=== PATIENT | female | born 1985 | race Caucasian/White ===

== ENCOUNTER 2017-08-31 05:57 | Emergency (ER) | payer OTHER ==
[~2017-08-31] VITALS: Ht 165.1 cm; Wt 68.7 kg
[~2017-08-31 05:57] MED LIST: CEFD300C37 PO; FERR325T18 PO; HYDR-3237 PO
[2017-08-31] MEDS ORDERED: ONDANSETRON ODT 4 MG ONE ×2 (06:30→08:56)
[2017-08-31] MEDS ORDERED: SODIUM CHLORIDE FLUSH 10ML SYR IVF ONE (06:30)
[2017-08-31] MEDS ORDERED: MORPHINE SULFATE 4 MG/ML, 1ML ONE ×4 (06:30→08:57)
[2017-08-31] MEDS ORDERED: ONDANSETRON ODT 4 MG PO ONE ×2 (06:30→09:00)
[2017-08-31] MEDS: MORPHINE SULFATE 4 MG/ML, 1ML IVPush PRN ×2 (06:42→07:11)
[2017-08-31 06:52] LABS: MEAN CORPUSCULAR HEMOGLOBIN 24.2 pg (27.0-34.8); MEAN CORPUSCULAR HGB CONC 31.9 g/dL (32.4-35.8); MEAN PLATELET VOLUME 8.1 fL (7.4-10.4); PLATELET COUNT 580 x10^3/uL (130-400); RED BLOOD COUNT 3.93 x10^6/uL (3.82-5.3); RED CELL DISTRIBUTION WIDTH 16.3 % (9.6-15.2)
[2017-08-31 07:00] LABS: ALBUMIN 3.3 g/dL (3.4-5.0); ANION GAP 13 mmol/L (5-15); CALCIUM 7.9 mg/dL (8.5-10.1); CHLORIDE 109 mmol/L (98-107)
[2017-08-31 07:07] LABS: ALANINE AMINOTRANSFERASE 11 U/L (12-78); ALKALINE PHOSPHATASE 82 U/L (45-117); BILIRUBIN,TOTAL 0.5 mg/dL (0.2-1.0); CREATININE 1.49 mg/dL (0.55-1.02); TOTAL PROTEIN 7.1 g/dL (6.4-8.2)
[2017-08-31 07:13] LABS: BASOPHILS # (AUTO) 0.04 x10^3/uL (0-0.1); BASOPHILS % (AUTO) 0 % (0-1); EOSINOPHILS # (AUTO) 0.01 x10^3/uL (0-0.4); EOSINOPHILS % (AUTO) 0 % (1-7); LYMPHOCYTES # (AUTO) 1.14 x10^3/uL (1-3.4); LYMPHOCYTES % (AUTO) 6 % (22-44); MD SCAN; MONOCYTES # (AUTO) 0.77 x10^3/uL (0.2-0.8); MONOCYTES % (AUTO) 4 % (2-9); NEUTROPHILS # (AUTO) 16.03 x10^3/uL (1.8-6.8); NEUTROPHILS % (AUTO) 89 % (42-75)
[2017-08-31] MEDS ORDERED: SODIUM CHLORIDE 0.9% 1,000ML IVBOLUS ONE ×2 (07:30→09:00)
[2017-08-31] MEDS ORDERED: LEVO175T5 PO (07:45)
[2017-08-31] MEDS ORDERED: FERR142T13 PO (07:46)
[2017-08-31] MEDS ORDERED: NORE5TAB2 PO (07:49)
[2017-08-31] MEDS ORDERED: CEFTRIAXONE PMX 1GM/50ML 50 ML IV ONE (08:30)
[2017-08-31] MEDS ORDERED: CEFTRIAXONE PMX 1GM/50ML 50 ML ONE (08:35)
[2017-08-31 08:46] LABS: MICROSCOPIC INDICATED
[2017-08-31] MEDS ORDERED: KETOROLAC 30 MG/1 ML ONE (08:56)
[2017-08-31] MEDS ORDERED: MORPHINE SULFATE 4 MG/ML, 1ML IVPush ONE (09:00)
[2017-08-31] MEDS ORDERED: KETOROLAC 30 MG/1 ML IVPush ONE (09:00)
[2017-08-31 09:04] LABS: CULTURE INDICATED? YES
[2017-08-31 10:36] VITALS: BP 118/78
== END 2017-08-31 10:38 | disposition home or self-care (01) ==
LOC: ED 10:30
DX: R10.32 Left lower quadrant pain (principal); E86.0 Dehydration
CPT/HCPCS: 36415; 76830; 80053; 81001; 84703; 85025; 87086; 96361; 96365; 96375; 96376; 99285; J0696; J1885; J7030; Q0162

== ENCOUNTER 2017-10-08 12:36 | Day surgery (SDC) | payer OTHER ==
[2017-10-05 11:40] LABS: BASOPHILS # (AUTO) 0.05 x10^3/uL (0-0.1); BASOPHILS % (AUTO) 1 % (0-1); EOSINOPHILS % (AUTO) 1 % (1-7); LYMPHOCYTES # (AUTO) 1.88 x10^3/uL (1-3.4); LYMPHOCYTES % (AUTO) 26 % (22-44); MD NO; MEAN CORPUSCULAR HEMOGLOBIN 22.8 pg (27.0-34.8); MEAN CORPUSCULAR HGB CONC 31.9 g/dL (32.4-35.8); MEAN CORPUSCULAR VOLUME 71.5 fL (80-100); MEAN PLATELET VOLUME 8.2 fL (7.4-10.4); MONOCYTES # (AUTO) 0.57 x10^3/uL (0.2-0.8); MONOCYTES % (AUTO) 8 % (2-9); NEUTROPHILS # (AUTO) 4.65 x10^3/uL (1.8-6.8); NEUTROPHILS % (AUTO) 64 % (42-75); PLATELET COUNT 469 x10^3/uL (130-400); RED BLOOD COUNT 4.66 x10^6/uL (3.82-5.3)
[~2017-10-08] VITALS: Ht 165.1 cm; Wt 67.8 kg
[~2017-10-08 12:36] MED LIST changes: +BUPIVACAINE/PF-EPI 0.25% 1:200K ONE; +FERR142T13 PO; +FLUORESCEIN SODIUM 500 MG/5 ML ONE; +LEVO175T5 PO; +LEVO200T5 PO; +LEVO25TA4 PO; +NORE5TAB2 PO; +SLOW FE PO
[2017-10-08 13:19] VITALS: BP 114/77
[2017-10-08] MEDS ORDERED: LACTATED RINGERS 1,000 ML IV SCH ×2 (13:22→18:03)
[2017-10-08] MEDS ORDERED: VASOPRESSIN 20 UNIT/ML, 1ML ONE (13:23)
[2017-10-08] MEDS ORDERED: LIDOCAINE-MPF 1%, 2ML INFIL ONE (13:30)
[2017-10-08] MEDS ORDERED: FENTANYL PF 250 MCG/5ML ONE ×2 (14:47→16:04)
[2017-10-08] MEDS ORDERED: MIDAZOLAM 1 MG/ML, 2ML ONE (14:47)
[2017-10-08] MEDS ORDERED: LIDOCAINE 4%, 4 ML SYR/CANN TP ONE (15:00)
[2017-10-08] MEDS ORDERED: LIDOCAINE PF 2%, 5ML ONE (15:00)
[2017-10-08] MEDS ORDERED: ONDANSETRON 2MG/ML, 2ML ONE (15:12)
[2017-10-08] MEDS ORDERED: GLYCOPYRROLATE 0.2MG/1ML, 5ML ONE (15:12)
[2017-10-08] MEDS ORDERED: CEFAZOLIN 1,000 MG ONE (15:12)
[2017-10-08] MEDS ORDERED: DEXAMETHASONE 4 MG/ML, 1ML ONE (15:12)
[2017-10-08] MEDS ORDERED: PROPOFOL 10 MG/ML, 20ML ONE (15:12)
[2017-10-08] MEDS ORDERED: NEOSTIGMINE 1 MG/ML, 10ML ONE (15:12)
[2017-10-08] MEDS ORDERED: ROCURONIUM 10MG/ML,5ML ONE (15:12)
[2017-10-08] MEDS ORDERED: SUCCINYLCHOLINE 20 MG/ML, 10ML ONE (15:12)
[2017-10-08] MEDS ORDERED: ONDANSETRON 2MG/ML, 2ML IV PRN (15:30)
[2017-10-08] MEDS ORDERED: MEPERIDINE/PF 25MG/0.5ML IVPush PRN (15:30)
[2017-10-08] MEDS ORDERED: ACETAMINOPHEN 325 MG TABLET PO PRN (15:30)
[2017-10-08] MEDS ORDERED: MORPHINE SULFATE 4 MG/ML, 1ML IVPush PRN (15:30)
[2017-10-08] MEDS ORDERED: PROMETHAZINE 25 MG/ML, 1ML IV PRN (15:30)
[2017-10-08] MEDS ORDERED: FENTANYL PF 100 MCG/2ML IV PRN (15:30)
[2017-10-08] MEDS ORDERED: OXYcodone 5 MG/5 ML ORAL.SOL UDC PO PRN (15:30)
[2017-10-08] MEDS ORDERED: ONDANSETRON ODT 8 MG PO PRN (15:30)
[2017-10-08] MEDS ORDERED: PROPOFOL 50 ML ONE (15:46)
[2017-10-08] MEDS ORDERED: METHYLENE BLUE 10 MG/ML 10ML ONE (15:49)
[2017-10-08] MEDS ORDERED: INDIGO CARMINE 0.8%, 5ML ONE (15:49)
[2017-10-08] MEDS ORDERED: INTERCEED 3 X 4 INCH DRESSING ONE (16:31)
[2017-10-08] MEDS ORDERED: SILVER NITRATE STICK TP ONE (17:43)
[2017-10-08] MEDS ORDERED: HYDROmorphone 2 MG/ML, 1ML ONE (18:04)
[2017-10-08] MEDS ORDERED: OXYcodone 5 MG/5 ML ORAL.SOL UDC ONE (18:05)
[2017-10-08] MEDS: HYDROmorphone 1 MG/ML, 1ML IV PRN ×4 (18:12→19:11)
[2017-10-08] MEDS ORDERED: OXYcodone/APAP 5/325MG TABLET PO PRN (18:30)
[2017-10-08] MEDS ORDERED: ONDANSETRON 2MG/ML, 2ML IVPush PRN (18:30)
[2017-10-08] MEDS ORDERED: PROMETHAZINE 25 MG SUPP PR ONE (18:30)
[2017-10-08] MEDS ORDERED: IBUPROFEN 600 MG TABLET PO PRN (18:30)
== END 2017-10-08 21:50 | disposition home or self-care (01) ==
LOC: OUT 12:36 → 4NOR 19:31 → OUT 21:50
PROVIDERS: ATTEND Obstetrics & Gynecology Female Pelvic Medicine and Reconstructive Surgery
DX: D25.9 Leiomyoma of uterus, unspecified (principal); N85.2 Hypertrophy of uterus; D64.9 Anemia, unspecified; Z90.49 Acquired absence of other specified parts of digestive tract; Z98.890 Other specified postprocedural states; Z79.899 Other long term (current) drug therapy; Z91.018 Allergy to other foods
CPT/HCPCS: 36415; 58545; 58662; 84703; 85025; 88305; 93005; G0378; J0330; J0690; J1100; J1170; J2250; J2405; J2704; J2710; J3010; J3490; J7120; Q9968

== ENCOUNTER → 2017-11-12 | Outpatient (CLI) | payer OTHER ==
[~2017-11-12] MED LIST changes: -BUPIVACAINE/PF-EPI 0.25% 1:200K ONE; -FLUORESCEIN SODIUM 500 MG/5 ML ONE
== END | disposition home or self-care (01) ==
LOC: STAR 13:09
PROVIDERS: ATTEND Obstetrics & Gynecology Female Pelvic Medicine and Reconstructive Surgery
DX: Z02.9 Encounter for administrative examinations, unspecified (principal)

== ENCOUNTER 2017-11-19 13:03 | Day surgery (SDC) | payer OTHER ==
[~2017-11-19] VITALS: Ht 165.1 cm; Wt 68.5 kg
[2017-11-19] MEDS ORDERED: LACTATED RINGERS 1,000 ML IV SCH ×2 (13:15→16:58)
[2017-11-19] MEDS ORDERED: SCOPOLAMINE PATCH, 1.5MG PATCH.TD72 TD ONE (13:30)
[2017-11-19] MEDS ORDERED: OXYcodone IR 5MG TABLET PO ONE (13:30)
[2017-11-19] MEDS ORDERED: ACETAMINOPHEN 500 MG TABLET PO ONE (13:30)
[2017-11-19 13:53] VITALS: BP 108/75
[2017-11-19] MEDS ORDERED: FENTANYL PF 250 MCG/5ML ONE (14:01)
[2017-11-19 14:16] LABS: HCG UR SG 1.026 (1.003-1.030)
[2017-11-19] MEDS ORDERED: BUPIVACAINE/PF 0.25% INFIL ONE (15:17)
[2017-11-19] MEDS ORDERED: ONDANSETRON 2MG/ML, 2ML IV PRN (16:00)
[2017-11-19] MEDS ORDERED: OXYcodone 5 MG/5 ML ORAL.SOL UDC PO PRN ×2 (16:00→17:00)
[2017-11-19] MEDS ORDERED: LABETALOL 5MG/ML, 20ML IV PRN (16:00)
[2017-11-19] MEDS ORDERED: PROMETHAZINE 25 MG/ML, 1ML IV PRN (16:00)
[2017-11-19] MEDS ORDERED: MEPERIDINE/PF 25MG/0.5ML IVPush PRN (16:00)
[2017-11-19] MEDS ORDERED: HYDROmorphone 1 MG/ML, 1ML IV PRN (16:00)
[2017-11-19] MEDS ORDERED: DIPHENHYDRAMINE 50 MG/ML, 1ML IVPush PRN (16:00)
[2017-11-19] MEDS ORDERED: hydrALAzine 20 MG/ML, 1ML IV PRN (16:00)
[2017-11-19] MEDS ORDERED: PROCHLORPERAZINE 5 MG/ML, 2ML IV PRN (16:00)
[2017-11-19] MEDS ORDERED: NEOSTIGMINE 1 MG/ML, 10ML ONE (16:36)
[2017-11-19] MEDS ORDERED: SUCCINYLCHOLINE 20 MG/ML, 10ML ONE (16:36)
[2017-11-19] MEDS ORDERED: CEFAZOLIN 1,000 MG ONE (16:36)
[2017-11-19] MEDS ORDERED: ROCURONIUM 10MG/ML,5ML ONE (16:36)
[2017-11-19] MEDS ORDERED: GLYCOPYRROLATE 0.2MG/1ML, 5ML ONE (16:36)
[2017-11-19] MEDS ORDERED: ONDANSETRON 2MG/ML, 2ML ONE (16:36)
[2017-11-19] MEDS ORDERED: PROPOFOL 10 MG/ML, 20ML ONE (16:36)
[2017-11-19] MEDS ORDERED: DEXAMETHASONE 4 MG/ML, 1ML ONE (16:36)
[2017-11-19] MEDS ORDERED: IBUPROFEN 600 MG TABLET PO PRN (17:00)
[2017-11-19] MEDS ORDERED: PROMETHAZINE 25 MG SUPP PR ONE (17:00)
[2017-11-19] MEDS ORDERED: ONDANSETRON 2MG/ML, 2ML IVPush PRN (17:00)
[2017-11-19] MEDS ORDERED: FENTANYL PF 100 MCG/2ML ONE (17:04)
[2017-11-19] MEDS ORDERED: OXYcodone 5 MG/5 ML ORAL.SOL UDC ONE (17:05)
[2017-11-19] MEDS: FENTANYL PF 100 MCG/2ML IV PRN ×3 (17:10→17:45)
== END 2017-11-19 19:45 | disposition home or self-care (01) ==
LOC: OUT 13:03 → 4NOR 18:05 → OUT 19:45
PROVIDERS: ATTEND Obstetrics & Gynecology Female Pelvic Medicine and Reconstructive Surgery
DX: D25.9 Leiomyoma of uterus, unspecified (principal); N94.6 Dysmenorrhea, unspecified; N73.6 Female pelvic peritoneal adhesions (postinfective); N83.8 Other noninflammatory disorders of ovary, fallopian tube and broad ligament; E03.9 Hypothyroidism, unspecified; D64.9 Anemia, unspecified; Z91.018 Allergy to other foods; Z90.49 Acquired absence of other specified parts of digestive tract; Z98.890 Other specified postprocedural states
CPT/HCPCS: 58573; 81025; 88307; J0171; J0330; J0690; J1100; J2405; J2704; J2710; J3010; J3490; J7120; G0378